=== PATIENT | female | born 1950 | race Caucasian/White ===

== ENCOUNTER 2018-03-30 13:12 | Emergency (ER) | payer MEDICARE ==
[~2018-03-30] VITALS: Ht 157.5 cm; Wt 93.2 kg
[~2018-03-30 13:12] MED LIST: AMLO5TAB10 PO; ASPI-612 PO; BENA20TA2 PO
[2018-03-30 13:39] LABS: BASOPHILS % (AUTO) 0.4 % (0-1); EOSINOPHILS # (AUTO) 0.1 X10'3 (0-0.9); EOSINOPHILS % (AUTO) 1.6 % (0-6); HEMATOCRIT 42.9 % (35.0-45.0); HEMOGLOBIN 14.8 g/dl (12.0-16.0); LYMPHOCYTES # (AUTO) 2.1 X10'3 (1.1-4.8); LYMPHOCYTES % (AUTO) 26.9 % (21-51); MEAN CORPUSCULAR HEMOGLOBIN 30.3 PG (27.0-31.0); MEAN CORPUSCULAR HGB CONC 34.4 % (33.0-36.5); MEAN PLATELET VOLUME 8.1 FL (7.4-10.4); MONOCYTES # (AUTO) 0.6 X10'3 (0-0.9); NEUTROPHILS % (AUTO) 63.1 % (42-75); PLATELET COUNT 198 X10'3 (140-440); RED BLOOD COUNT 4.88 X10'6 (4.20-5.60); RED CELL DISTRIBUTION WIDTH 13.6 % (11.5-14.5)
[2018-03-30 13:46] VITALS: BP 153/61
[2018-03-30 13:52] LABS: INR 0.9 INR; PARTIAL THROMBOPLASTIN TIME 27 SECONDS (22-32); PROTHROMBIN TIME 9.8 SECONDS (9.0-12.0)
[2018-03-30 13:59] LABS: ALANINE AMINOTRANSFERASE 33 U/L (12-78); ALBUMIN 3.8 G/DL (3.4-5.0); ALBUMIN/GLOBULIN RATIO 0.9 (1.1-1.5); ALKALINE PHOSPHATASE 97 IU/L (46-116); ANION GAP 6 (8-16); ASPARTATE AMINO TRANSFERASE 24 U/L (10-37); BILIRUBIN,TOTAL 0.7 MG/DL (0.1-1.0); BLOOD UREA NITROGEN 16 MG/DL (7-18); CHLORIDE 102 MMOL/L (99-107); GLUCOSE 128 MG/DL (70-104); SODIUM 136 MMOL/L (135-145); TOTAL CARBON DIOXIDE 27.7 MMOL/L (24-32); TOTAL PROTEIN 8.1 G/DL (6.4-8.2); eGFR 71 ML/MIN
[2018-03-30] MEDS ORDERED: potassium Cl 20 mEq SR tablet PO ONE (14:25)
[2018-03-30] MEDS ORDERED: OMEP40CA37 PO (14:36)
== END 2018-03-30 14:50 | disposition home or self-care (01) ==
LOC: ER 13:13
DX: R07.89 Other chest pain (principal); I10 Essential (primary) hypertension; I49.9 Cardiac arrhythmia, unspecified; Z88.8 Allergy status to other drugs, medicaments and biological substances; Z79.82 Long term (current) use of aspirin; Z79.899 Other long term (current) drug therapy
CPT/HCPCS: 36415; 71045; 80053; 84484; 85025; 85610; 85730; 93005; 99285

== ENCOUNTER 2021-03-08 19:01 | Inpatient (IN) | payer MEDICARE, BC ==
[~2021-03-08] VITALS: Ht 160 cm; Wt 100.0 kg
[~2021-03-08 19:01] MED LIST changes: -BENA20TA2 PO; +BENA20TA82 PO
[2021-03-08 19:42] LABS: BASOPHILS % (AUTO) 0.5 % (0-1); EOSINOPHILS # (AUTO) 0.1 X10'3 (0-0.9); EOSINOPHILS % (AUTO) 1.4 % (0-6); HEMATOCRIT 43.1 % (35.0-45.0); HEMOGLOBIN 14.6 g/dl (12.0-16.0); LYMPHOCYTES # (AUTO) 2.3 X10'3 (1.1-4.8); MEAN CORPUSCULAR HEMOGLOBIN 30.3 PG (27.0-31.0); MEAN CORPUSCULAR HGB CONC 33.8 g/dL (33.0-36.5); MEAN CORPUSCULAR VOLUME 89.5 FL (78-98); MEAN PLATELET VOLUME 8.2 FL (7.4-10.4); MONOCYTES # (AUTO) 0.6 X10'3 (0-0.9); MONOCYTES % (AUTO) 8.4 % (2-12); NEUTROPHILS # (AUTO) 4.6 X10'3 (1.8-7.7); NEUTROPHILS % (AUTO) 59.7 % (42-75); PLATELET COUNT 217 X10'3 (140-440); RED BLOOD COUNT 4.82 X10'6 (4.20-5.60); RED CELL DISTRIBUTION WIDTH 13.5 % (11.5-14.5); WHITE BLOOD COUNT 7.7 X10'3 (4.5-11.0)
[2021-03-08 19:50] LABS: ALANINE AMINOTRANSFERASE 24 U/L (12-78); ALBUMIN 3.8 G/DL (3.4-5.0); ALBUMIN/GLOBULIN RATIO 1.1 (1.1-1.5); ALKALINE PHOSPHATASE 88 IU/L (46-116); ANION GAP 9 (8-16); ASPARTATE AMINO TRANSFERASE 21 U/L (10-37); BILIRUBIN,TOTAL 0.7 MG/DL (0.1-1.0); BLOOD UREA NITROGEN 13 MG/DL (7-18); BUN/CREATININE RATIO 16.5 (6.6-38.0); CALCIUM 9.2 MG/DL (8.5-10.1); CHLORIDE 99 MMOL/L (99-107); CREATININE 0.79 MG/DL (0.40-0.90); GLUCOSE 117 MG/DL (70-104); POTASSIUM 3.7 MMOL/L (3.5-5.1); SODIUM 136 MMOL/L (135-145); TOTAL CARBON DIOXIDE 27.7 MMOL/L (24-32); TOTAL PROTEIN 7.4 G/DL (6.4-8.2); eGFR 72 ML/MIN
[2021-03-08] MEDS ORDERED: diltiazem 5mg/ml 5ml inj. IV ONE (22:30)
[2021-03-09] MEDS ORDERED: diphenhydrAMINE 25mg capsule PO PRN (00:30)
[2021-03-09] MEDS ORDERED: magnesium hydroxide 30ml (MOM) UD suspension PO PRN (00:30)
[2021-03-09] MEDS ORDERED: ondansetron/PF 4mg/2ml inj IV PRN (00:30)
[2021-03-09] MEDS ORDERED: HYDROcodone/acetaminophen 5mg/325mg tablet PO PRN (00:30)
[2021-03-09] MEDS ORDERED: ondansetron 4mg rapidly disintigrating tab PO PRN (00:30)
[2021-03-09] MEDS ORDERED: acetaminophen 325mg tablet PO PRN ×2 (00:30)
[2021-03-09] MEDS ORDERED: bisacodyl 10mg suppository rectal RC PRN (00:30)
[2021-03-09] MEDS ORDERED: acetaminophen 650mg rectal suppository RC PRN (00:30)
[2021-03-09] MEDS ORDERED: diphenhydrAMINE 50 mg/ml inj IV PRN (00:30)
[2021-03-09] MEDS ORDERED: normal saline 1000ml 1,000 ML IV SCH (00:30)
[2021-03-09] MEDS ORDERED: morphine 2 MG/ML inj. syringe IV PRN ×2 (00:30)
[2021-03-09] MEDS ORDERED: mag hydrox/Alum hydrox/simeth 30ml oral suspension PO PRN (00:30)
[2021-03-09] MEDS ORDERED: heparin 10,000 units/1 ML INJ IV PRN (00:35)
[2021-03-09] MEDS ORDERED: heparin 10,000 units/1 ML INJ IV ONE (00:35)
[2021-03-09] MEDS ORDERED: heparin 25,000 UNIT/250ml bag 250 ML IV SCH (00:35)
[2021-03-09 01:04] LABS: HEMOGLOBIN A1C 5.7 % (4.5-6.2)
[2021-03-09 01:10] LABS: MAGNESIUM 1.9 MG/DL (1.5-2.4); PHOSPHORUS 3.6 MG/DL (2.3-4.5)
--- NOTE | 2021-03-09 01:39 | NUR ---
KASHMIR Leahy 3rd floor notified waiting PTT INR for Heparine started. Will do at arrival on floor
[2021-03-09 01:45] LABS: D-DIMER 0.33 MG/L FEU (0-0.50); PARTIAL THROMBOPLASTIN TIME 27 SECONDS (22-32)
[2021-03-09 01:53] LABS: BASOPHILS % (AUTO) 0.4 % (0-1); EOSINOPHILS # (AUTO) 0.1 X10'3 (0-0.9); EOSINOPHILS % (AUTO) 1.1 % (0-6); HEMATOCRIT 43.8 % (35.0-45.0); HEMOGLOBIN 14.9 g/dl (12.0-16.0); LYMPHOCYTES # (AUTO) 2.9 X10'3 (1.1-4.8); LYMPHOCYTES % (AUTO) 32.3 % (21-51); MEAN CORPUSCULAR HEMOGLOBIN 30.5 PG (27.0-31.0); MEAN CORPUSCULAR HGB CONC 34.1 g/dL (33.0-36.5); MEAN CORPUSCULAR VOLUME 89.6 FL (78-98); MEAN PLATELET VOLUME 8.6 FL (7.4-10.4); MONOCYTES # (AUTO) 0.7 X10'3 (0-0.9); NEUTROPHILS # (AUTO) 5.2 X10'3 (1.8-7.7); NEUTROPHILS % (AUTO) 58.2 % (42-75); PLATELET COUNT 206 X10'3 (140-440); RED BLOOD COUNT 4.89 X10'6 (4.20-5.60); RED CELL DISTRIBUTION WIDTH 13.5 % (11.5-14.5)
[2021-03-09 02:00] VITALS: BP 114/54
[2021-03-09 06:00] VITALS: BP 120/76
--- NOTE | 2021-03-09 06:15 | NUR ---
Patient in room [facility] 314. I have received report from Tosin MARLOW and had the opportunity to ask questions and assume patient care.
[2021-03-09] MEDS ORDERED: pantoprazole 40mg Tablet.DR PO SCH (07:30)
[2021-03-09] MEDS ORDERED: furosemide 10 MG/1 ML 10ml inj IV SCH (08:00)
[2021-03-09] MEDS ORDERED: amLODIPine 5mg tablet PO SCH ×2 (08:00→08:40)
[2021-03-09] MEDS ORDERED: atorvastatin 20mg tablet PO SCH (08:00)
[2021-03-09] MEDS ORDERED: docusate sod 100mg capsule PO SCH (08:00)
[2021-03-09] MEDS ORDERED: magnesium 4gm in 100ml NS 100 ML IV PRN (08:05)
[2021-03-09] MEDS ORDERED: potassium Cl 20 mEq SR tablet PO PRN ×2 (08:05)
[2021-03-09] MEDS ORDERED: magnesium Cl slow-release 64mg tablet PO PRN (08:05)
[2021-03-09] MEDS ORDERED: potassium Cl 40MEQ/1/2NS 520ml 520 ML IV PRN (08:05)
[2021-03-09] MEDS ORDERED: carvedilol 6.25mg tablet PO SCH (08:10)
[2021-03-09] MEDS ORDERED: aspirin 81mg tablet.DR PO SCH (08:39)
[2021-03-09] MEDS ORDERED: apixaban 5mg tablet PO SCH (09:25)
[2021-03-09] MEDS ORDERED: APIX5TAB3 PO (10:53)
[2021-03-09] MEDS ORDERED: CARV6.253 PO (10:53)
[2021-03-09] MEDS ORDERED: PANT40TA54 PO (10:53)
[2021-03-09] MEDS ORDERED: ATOR20TA66 PO (10:53)
[2021-03-09 11:00] VITALS: BP 103/67
--- NOTE | 2021-03-09 12:37 | NUR ---
Pt DC'd home with . IV removed, canula intact. electrodes removed. Pt alert and oriented and vitals WNL upon DC. Per Dr. Sommers; pt is stable for DC. DC paperwork printed out and gone over with Pt. Allowed Pt to ask questions concerning DC and then answered them. New medications called into pharmacy in [place]. 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 Grande, on 10/11/19 at 0845. Pt's belongings gathered and sent with Pt. Pt wheeled down to lobby via wheelchair. Pt left in private vehicle with for home in [place].
[2021-03-09] MEDS ORDERED: K and/or MAG REPLACEMENT MC SCH (20:00)
[2021-03-09] MEDS ORDERED: temazepam 15mg capsule PO PRN (21:00)
[2021-03-10] MEDS ORDERED: lisinopril 20mg tablet PO SCH (08:00)
== END 2021-03-09 12:37 | disposition home or self-care (01) | DRG 308 ==
LOC: ER 19:02 → ED HOLD 03-09 00:28 → MED 3N 03-09 01:50
PROVIDERS: ADMIT Family Medicine; ATTEND Family Medicine
DX: I48.0 Paroxysmal atrial fibrillation (principal); I50.33 Acute on chronic diastolic (congestive) heart failure; I11.0 Hypertensive heart disease with heart failure; E03.9 Hypothyroidism, unspecified; E66.01 Morbid (severe) obesity due to excess calories; Z68.39 Body mass index [BMI] 39.0-39.9, adult; Z88.1 Allergy status to other antibiotic agents; Z79.899 Other long term (current) drug therapy; Z79.82 Long term (current) use of aspirin; Z71.3 Dietary counseling and surveillance
CPT/HCPCS: 36415; 71045; 80053; 83036; 83735; 83880; 84100; 84443; 84484; 85025; 85379; 85610; 85730; 87081; 93005; 93306; 99285; G0378; J1644; J1940; J3490; J7030

== ENCOUNTER 2021-09-21 12:18 | Emergency (ER) | payer MEDICARE, BC ==
[~2021-09-21] VITALS: Ht 157.5 cm; Wt 96.4 kg
[~2021-09-21 12:18] MED LIST changes: -AMLO5TAB10 PO; +APIX5TAB3 PO; +ATOR20TA66 PO; +CARV6.253 PO; +PANT40TA54 PO
[2021-09-21 13:10] LABS: BASOPHILS % (AUTO) 0.7 % (0-1); EOSINOPHILS # (AUTO) 0.1 X10'3 (0-0.9); EOSINOPHILS % (AUTO) 1.6 % (0-6); HEMATOCRIT 38.6 % (35.0-45.0); HEMOGLOBIN 12.9 g/dl (12.0-16.0); LYMPHOCYTES # (AUTO) 1.2 X10'3 (1.1-4.8); MEAN CORPUSCULAR HEMOGLOBIN 30.2 PG (27.0-31.0); MEAN CORPUSCULAR HGB CONC 33.6 g/dL (33.0-36.5); MEAN CORPUSCULAR VOLUME 89.8 FL (78-98); MEAN PLATELET VOLUME 8.7 FL (7.4-10.4); MONOCYTES # (AUTO) 0.5 X10'3 (0-0.9); MONOCYTES % (AUTO) 7.7 % (2-12); NEUTROPHILS # (AUTO) 5.1 X10'3 (1.8-7.7); PLATELET COUNT 173 X10'3 (140-440); RED BLOOD COUNT 4.29 X10'6 (4.20-5.60); RED CELL DISTRIBUTION WIDTH 14.5 % (11.5-14.5)
[2021-09-21 13:30] LABS: ALANINE AMINOTRANSFERASE 21 U/L (12-78); ALBUMIN 3.5 G/DL (3.4-5.0); ALBUMIN/GLOBULIN RATIO 1.1 (1.1-1.5); ALKALINE PHOSPHATASE 86 IU/L (46-116); ANION GAP 9 (8-16); ASPARTATE AMINO TRANSFERASE 19 U/L (10-37); BILIRUBIN,TOTAL 0.5 MG/DL (0.1-1.0); BLOOD UREA NITROGEN 14 MG/DL (7-18); BUN/CREATININE RATIO 20.3 (6.6-38.0); CALCIUM 8.8 MG/DL (8.5-10.1); CHLORIDE 105 MMOL/L (99-107); CREATININE 0.69 MG/DL (0.40-0.90); GLUCOSE 110 MG/DL (70-104); POTASSIUM 3.6 MMOL/L (3.5-5.1); SODIUM 139 MMOL/L (135-145); TOTAL CARBON DIOXIDE 24.6 MMOL/L (24-32); TOTAL PROTEIN 6.8 G/DL (6.4-8.2); eGFR 84 ML/MIN
[2021-09-21] MEDS ORDERED: ACET-1025 PO (13:48)
[2021-09-21 14:06] VITALS: BP 150/73
== END 2021-09-21 14:13 | disposition home or self-care (01) ==
LOC: ER 12:18
DX: M79.622 Pain in left upper arm (principal); I48.91 Unspecified atrial fibrillation; I10 Essential (primary) hypertension; Z88.1 Allergy status to other antibiotic agents; Z79.82 Long term (current) use of aspirin; Z79.899 Other long term (current) drug therapy
CPT/HCPCS: 36415; 71045; 80053; 83880; 84484; 85025; 93005; 99285

== ENCOUNTER 2022-07-31 09:42 | Emergency (ER) | payer MEDICARE, BC ==
[~2022-07-31] VITALS: Ht 157.5 cm; Wt 99.0 kg
[2022-07-31 10:02] VITALS: BP 154/70
[2022-07-31 10:25] LABS: BASOPHILS % (AUTO) 0.9 % (0-1); EOSINOPHILS # (AUTO) 0.2 X10'3 (0-0.9); EOSINOPHILS % (AUTO) 2.9 % (0-6); HEMATOCRIT 40.3 % (35.0-45.0); HEMOGLOBIN 13.7 g/dl (12.0-16.0); LYMPHOCYTES # (AUTO) 1.5 X10'3 (1.1-4.8); LYMPHOCYTES % (AUTO) 28.1 % (21-51); MEAN CORPUSCULAR HEMOGLOBIN 30.4 PG (27.0-31.0); MEAN CORPUSCULAR VOLUME 89.5 FL (78-98); MEAN PLATELET VOLUME 7.9 FL (7.4-10.4); MONOCYTES # (AUTO) 0.5 X10'3 (0-0.9); MONOCYTES % (AUTO) 9.4 % (2-12); NEUTROPHILS # (AUTO) 3.2 X10'3 (1.8-7.7); NEUTROPHILS % (AUTO) 58.7 % (42-75); PLATELET COUNT 186 X10'3 (140-440); RED BLOOD COUNT 4.51 X10'6 (4.20-5.60); RED CELL DISTRIBUTION WIDTH 13.8 % (11.5-14.5); WHITE BLOOD COUNT 5.5 X10'3 (4.5-11.0)
[2022-07-31 10:39] LABS: ALANINE AMINOTRANSFERASE 33 U/L (12-78); ALBUMIN 3.5 G/DL (3.4-5.0); ALBUMIN/GLOBULIN RATIO 1.1 (1.1-1.5); ALKALINE PHOSPHATASE 81 IU/L (46-116); ANION GAP 7 (8-16); ASPARTATE AMINO TRANSFERASE 26 U/L (10-37); BILIRUBIN,TOTAL 0.5 MG/DL (0.1-1.0); BLOOD UREA NITROGEN 12 MG/DL (7-18); BUN/CREATININE RATIO 19.4 (6.6-38.0); CALCIUM 9.1 MG/DL (8.5-10.1); CHLORIDE 104 MMOL/L (99-107); CREATININE 0.62 MG/DL (0.40-0.90); GLUCOSE 98 MG/DL (70-104); POTASSIUM 3.6 MMOL/L (3.5-5.1); SODIUM 139 MMOL/L (135-145); TOTAL CARBON DIOXIDE 28.1 MMOL/L (24-32); TOTAL PROTEIN 6.8 G/DL (6.4-8.2); eGFR > 90 ML/MIN
[2022-07-31 10:48] LABS: MAGNESIUM 1.8 MG/DL (1.5-2.4)
--- NOTE | 2022-07-31 11:36 | NUR ---
Pt and given and understands d/c instructions. IV d/c'd, catheter was intact. Ambulatory with a steady gait. Escorted out of department via wheelchair.
== END 2022-07-31 11:38 | disposition home or self-care (01) ==
LOC: ER 09:42
DX: I48.0 Paroxysmal atrial fibrillation (principal); I10 Essential (primary) hypertension; Z88.1 Allergy status to other antibiotic agents
CPT/HCPCS: 36415; 71045; 80053; 83735; 83880; 84484; 85025; 93005; 99285

== ENCOUNTER 2023-09-28 11:25 | Day surgery (SDC) | payer MEDICARE, BC ==
[2023-09-21 15:27] LABS: EOSINOPHILS # (AUTO) 0.1 X10'3 (0-0.9); MONOCYTES # (AUTO) 0.7 X10'3 (0-0.9); PRE OP PLATELET COUNT 192 X10'3 (140-440)
[2023-09-21 15:29] LABS: BASOPHILS % (AUTO) 0.6 % (0-1); EOSINOPHILS % (AUTO) 1.1 % (0-6); LYMPHOCYTES # (AUTO) 1.6 X10'3 (1.1-4.8); LYMPHOCYTES % (AUTO) 21.1 % (21-51); MEAN CORPUSCULAR HEMOGLOBIN 31.2 PG (27.0-31.0); MEAN CORPUSCULAR HGB CONC 33.9 g/dL (33.0-36.5); MEAN PLATELET VOLUME 8.2 FL (7.4-10.4); NEUTROPHILS # (AUTO) 5.1 X10'3 (1.8-7.7); NEUTROPHILS % (AUTO) 68.2 % (42-75); PRE OP HEMOGLOBIN 14.3 g/dL (12.0-16.0); PRE OP WHITE BLOOD COUNT 7.5 10'3 (4.8-10.8); RED BLOOD COUNT 4.57 X10'6 (4.20-5.60); RED CELL DISTRIBUTION WIDTH 14.1 % (11.5-14.5)
[2023-09-21 15:34] LABS: ALBUMIN 3.7 G/DL (3.4-5.0); ALKALINE PHOSPHATASE 90 IU/L (46-116); BLOOD UREA NITROGEN 16 MG/DL (7-18); BUN/CREATININE RATIO 23.2 (10.0-20.0); CALCIUM 9.4 MG/DL (8.5-10.1); CHLORIDE 103 MMOL/L (99-107); CREATININE 0.69 MG/DL (0.40-0.90); PRE OP ALT 23 U/L (30-65); PRE OP ANION GAP 10 (8-16); PRE OP AST 22 U/L (10-37); PRE OP BILIRUB, TOTAL 0.6 MG/DL (0.0-1.0); PRE OP GLUCOSE 101 MG/DL (70-104); PRE OP POTASSIUM 3.6 MMOL/L (3.4-5.1); PRE OP SODIUM 139 MMOL/L (135-145); TOTAL CARBON DIOXIDE 26.1 MMOL/L (24-32); TOTAL PROTEIN 7.5 G/DL (6.4-8.2); eGFR 83 ML/MIN
[2023-09-28] VITALS (8 sets, daily range): BP systolic 129–160; BP diastolic 54–77; PULSE 62–75; RESP 13–16; TEMP 98.2; O2SAT 68–98
[~2023-09-28] VITALS: Ht 157.5 cm; Wt 97.5 kg
[~2023-09-28 11:25] MED LIST changes: +ASCO500C14 PO; -ASPI-612 PO; +ATOR20TA10 PO; -ATOR20TA66 PO; -BENA20TA82 PO; +BIOCOMPLETE PO; -CARV6.253 PO; +CARV6.2555 PO; +CHELATED ZINC PO; +CHOL10008 PO; +DOCUMENT DATE & TIME OF BETA-BLOCKER PO ONE; +LEVO100T78 PO; +MELA10TA3 PO; +MULT-1085 PO; +[UNRECOGNIZED DRUG - OTHER] PO; +[UNRECOGNIZED DRUG - OTHER] PO; +cefazolin 2gm/D5W 100mL 100 ML IV ONE; +famotidine 20mg tablet PO ONE; +ringers solution, lacted 1,000 ML IV SCH
[2023-09-28] MEDS ORDERED: ringers solution, lacted 1,000 ML IV SCH ×2 (11:45→14:20)
[2023-09-28] MEDS ORDERED: labetalol 20mg/4ml (5mg/ml) syringe IV PRN ×2 (11:45→14:20)
[2023-09-28] MEDS ORDERED: hydrALAZINE 20mg/ml inj. IV PRN ×2 (11:45→14:20)
[2023-09-28] MEDS ORDERED: fentaNYL/PF 50MCG/1 ML 2ML syringe IV PRN ×2 (11:45)
[2023-09-28] MEDS ORDERED: ondansetron/PF 4mg/2ml inj IV PRN ×2 (11:45→14:20)
[2023-09-28] MEDS ORDERED: morphine 4 MG/ML inj SYRINge IV PRN ×2 (11:45→14:20)
[2023-09-28] MEDS ORDERED: morphine 2 MG/ML inj. syringe IV PRN ×2 (11:45→14:20)
[2023-09-28] MEDS ORDERED: methylene blue (5mg/ml) 50mg/10ml ampul IV ONE ×2 (12:54→14:13)
[2023-09-28] MEDS ORDERED: LIDOcaine 1% (10mg/ml)w/preservative inj. 20ml MDV ONE (12:54)
[2023-09-28] MEDS ORDERED: BUPIVAcaine/PF 2.5mg/ml (0.25%) 10ml vial ONE (12:54)
[2023-09-28] MEDS ORDERED: midazolam 1 mg/ML 2ml injection ONE (13:16)
[2023-09-28] MEDS ORDERED: fentaNYL /PF 50mcg/ml 5ml ampule ONE (13:26)
[2023-09-28] MEDS ORDERED: LIDOcaine 1% 30ml preserv. free vial IJ ONE (14:10)
[2023-09-28] MEDS ORDERED: BUPIVAcaine/PF 2.5mg/ml (0.25%) 10ml vial IJ ONE (14:12)
[2023-09-28] MEDS ORDERED: proCHLORperazine 10 MG/2 ml inj IV PRN (14:20)
[2023-09-28] MEDS ORDERED: acetaminophen 1,000mg/100ml IV 100 ML IV ONE (14:20)
[2023-09-28] MEDS ORDERED: meperidine/PF 25mg/ml syringe IV PRN (14:20)
[2023-09-28] MEDS ORDERED: HYDROmorphone/PF 0.2 MG/ML SYRINGE IV PRN ×2 (14:20)
[2023-09-28] MEDS ORDERED: propofol inj 20 ML IV ONE (14:23)
[2023-09-28] MEDS ORDERED: dexamethasone sod phosphate 4mg/ml inj. ONE (14:23)
[2023-09-28] MEDS ORDERED: LIDOcaine 2% (20mg/ml) 5ml vial ONE (14:23)
[2023-09-28] MEDS ORDERED: ondansetron/PF 4mg/2ml inj ONE (14:23)
== END 2023-09-28 15:45 | disposition home or self-care (01) ==
LOC: PAS 11:25
PROVIDERS: ATTEND Surgery
DX: C50.412 Malignant neoplasm of upper-outer quadrant of left female breast (principal); E03.9 Hypothyroidism, unspecified; I10 Essential (primary) hypertension; I48.91 Unspecified atrial fibrillation; K21.9 Gastro-esophageal reflux disease without esophagitis; Z98.890 Other specified postprocedural states; Z98.49 Cataract extraction status, unspecified eye; Z90.49 Acquired absence of other specified parts of digestive tract; Z94.7 Corneal transplant status; Z96.653 Presence of artificial knee joint, bilateral; Z79.899 Other long term (current) drug therapy
CPT/HCPCS: 19301; 36415; 38525; 38900; 76098; 76998; 80053; 82948; 85025; J0131; J0690; J1100; J2175; J2250; J2405; J2704; J3010; J3490; J7030; J7120; Q9968; Z7506; Z7508; Z7512; A4215; A4618; A6258; A7000

== ENCOUNTER 2023-11-23 17:19 | Emergency (ER) | payer MEDICARE, BC ==
[~2023-11-23] VITALS: Ht 157.5 cm; Wt 103.0 kg
[~2023-11-23 17:19] MED LIST changes: -DOCUMENT DATE & TIME OF BETA-BLOCKER PO ONE; -cefazolin 2gm/D5W 100mL 100 ML IV ONE; -famotidine 20mg tablet PO ONE; -ringers solution, lacted 1,000 ML IV SCH
[2023-11-23 17:29] VITALS: TEMP 98.3
[2023-11-23 18:21] LABS: BASOPHILS % (AUTO) 0.2 % (0-1); EOSINOPHILS % (AUTO) 0 % (0-6); HEMATOCRIT 42.8 % (35.0-45.0); HEMOGLOBIN 14.5 g/dl (12.0-16.0); LYMPHOCYTES # (AUTO) 1.2 X10'3 (1.1-4.8); LYMPHOCYTES % (AUTO) 4.2 % (21-51); MEAN CORPUSCULAR HEMOGLOBIN 30.8 PG (27.0-31.0); MEAN CORPUSCULAR VOLUME 90.5 FL (78-98); MEAN PLATELET VOLUME 9.1 FL (7.4-10.4); MONOCYTES # (AUTO) 0.3 X10'3 (0-0.9); NEUTROPHILS # (AUTO) 25.9 X10'3 (1.8-7.7); NEUTROPHILS % (AUTO) 94.6 % (42-75); PLATELET COUNT 149 X10'3 (140-440); RED BLOOD COUNT 4.72 X10'6 (4.20-5.60); RED CELL DISTRIBUTION WIDTH 13.2 % (11.5-14.5)
[2023-11-23 18:27] LABS: WHITE BLOOD COUNT 27.3 X10'3 (4.5-11.0)
[2023-11-23 18:46] LABS: ALBUMIN 3.3 G/DL (3.4-5.0); ANION GAP 9 (8-16); BLOOD UREA NITROGEN 13 MG/DL (7-18); BUN/CREATININE RATIO 22.4 (10.0-20.0); CALCIUM 8.5 MG/DL (8.5-10.1); CHLORIDE 105 MMOL/L (99-107); CREATININE 0.58 MG/DL (0.40-0.90); GLUCOSE 109 MG/DL (70-104); POTASSIUM 3.2 MMOL/L (3.5-5.1); PRO BRAIN NATRIURETIC PEPTIDE 3859 PG/ML (0-450); SODIUM 142 MMOL/L (135-145); TOTAL CARBON DIOXIDE 27.6 MMOL/L (24-32); eCRCL 66 ML/MIN; eGFR > 90 ML/MIN
[2023-11-23] MEDS: diltiazem 5mg/ml 5ml inj. IV ONE ×3 (19:24→21:17)
[2023-11-23] MEDS: normal saline 1000ml 1,000 ML IV ONE (19:25)
[2023-11-23 20:53] LABS: ELLIPTOCYTES FEW; PLATELET ESTIMATE NORMAL; TOTAL CELLS COUNTED 100; TOXIC GRANULATION 1+; TOXIC VACUOLATION 1+
[2023-11-23] MEDS: potassium Cl 20 mEq SR tablet PO STA (21:16)
[2023-11-23] MEDS: propofol 10mg/ml 20ml vial IV ONE (21:35)
[2023-11-23 22:20] VITALS: RESP 20
[2023-11-23] MEDS: metoprolol tartrate 50mg tablet PO ONE (22:56)
[2023-11-23 23:23] VITALS: BP 142/77; PULSE 75; O2SAT 95
== END 2023-11-23 23:24 | disposition home or self-care (01) ==
LOC: ER 17:19
DX: I48.20 Chronic atrial fibrillation, unspecified (principal); I10 Essential (primary) hypertension; R06.00 Dyspnea, unspecified; Z85.3 Personal history of malignant neoplasm of breast
CPT/HCPCS: 36415; 71045; 80048; 83605; 83880; 84145; 84484; 85007; 85025; 87040; 92960; 93005; 96361; 96374; 96376; 99291; J2704; J3490; J7030; A4620